=== PATIENT | female | born 1990 | race Caucasian/White ===

== ENCOUNTER → 2016-08-13 13:17 | Outpatient (CLI) | payer OTHER ==
[2014-08-11 06:47] VITALS: BMI 27.3
[~2016-08-13 13:17] MED LIST: HYDROCODON-ACE1 EAC7 PO; XANAX0.25 MG PO
== END | disposition home or self-care (01) ==
LOC: D.US 13:17
DX: N63 Unspecified lump in breast (principal)

== ENCOUNTER → 2016-08-23 14:24 | Outpatient (CLI) | payer OTHER ==
[2014-08-11 06:47] VITALS: BMI 27.3
== END | disposition home or self-care (01) ==
LOC: D.US 14:24
DX: N63 Unspecified lump in breast (principal)